=== PATIENT | male | born 1990 | race Asian ===

== ENCOUNTER 2020-11-20 17:35 | Emergency (ER) | payer BC, OTHER ==
[2020-11-20 18:18] VITALS: BMI 25.1
[2020-11-20] MEDS ORDERED: CASIRIVIMAB/IMDEVIMAB 10 ML in SODIUM CHLORIDE 100 ML IVPB ONE (19:27)
[2020-11-20 20:50] LABS: HEMATOCRIT 39.8 % (35.4-49); HEMOGLOBIN 13.9 GM/dL (11.7-16.9); MCH 29.9 pg (25.7-33.7); MCHC 34.8 g/dl (32.0-35.9); MEAN CELL VOLUME 85.8 fl (80-96); MEAN PLT VOLUME 8.8 fl (7.5-11.1); PLATELET COUNT 124 10^3/uL (134-434); RBC 4.64 M/mm3 (4.00-5.60); RDW 12.7 % (11.9-15.9); WHITE BLOOD COUNT 2.3 K/mm3 (4.0-10.0)
[2020-11-20 21:04] LABS: CALCIUM 8.4 mg/dL (8.5-10.1)
[2020-11-20 21:05] LABS: ALBUMIN 3.6 g/dl (3.4-5.0); BLOOD UREA NITROGEN 9.6 mg/dL (7-18)
[2020-11-20 21:08] LABS: CREATININE 1.2 mg/dL (0.55-1.3)
[2020-11-20] MEDS ORDERED: ACETAMINOPHEN 500 MG TABLET (FP) PO ONE (21:59)
[2020-11-20 22:03] VITALS: BP 106/73; PULSE 95
[2020-11-20 22:41] VITALS: TEMP 100.3
== END 2020-11-20 23:13 | disposition home or self-care (01) ==
LOC: JCOVINFU 17:35
DX: M79.10 Myalgia, unspecified site (principal); U07.1 COVID-19
CPT/HCPCS: 36415; 71045-TC-FY; 80053; 85027; 99284-25; Q0240